=== PATIENT | female | born 1960 | race Caucasian/White ===

== ENCOUNTER → 2020-08-11 | Outpatient (CLI) | payer BC ==
--- NOTE | 2020-08-11 11:22 | CT ---
EXAMINATION TYPE: CT urogram wo/w con DATE OF EXAM: 08/11/2020 HISTORY: Microscopic hematuria CT DLP: 1622.5mGycm Automated Exposure Control for Dose Reduction was Utilized. CONTRAST: CT scan of the abdomen and pelvis is performed without oral and without and with IV Contrast, patient injected with 100 mL of Isovue 300. Urogram protocol with 3-D reconstructed images created on an ind [employer] HR workstation and reviewed COMPARISON: None. FINDINGS: KUB: Noncontrast images show no renal calculi bilaterally. Postcontrast images show symmetric cortica l medullary uptake and excretion without concerning solid or cystic renal mass or hydronephrosis seen bilaterally. No intraluminal calculus in the bladder. Ureters nearly completely opacified without ang[place] spicious mass or calculus. Distal right ureter never is well opacified. No suspicious intraluminal ma ss or wall thickening in the bladder. LUNG BASES: No significant abnormality is appreciated. LIVER/GB: Cholecystectomy clips are present. PANCREAS: No significant abnormality is seen. SPLEEN: No significant abnormality is seen. ADRENALS: No significant abnormality is seen. BOWEL: No significant abnormality is seen. UTERUS/ADNEXA: Anteverted uterus. LYMPH NODES: No greater than 1cm abdominal or pelvic lymph nodes are appreciated. OSSEOUS STRUCTURES: Mild to moderate axial joint space loss with mild acetabular spurring in both hip s. Mild facet arthropathy lower lumbar levels. OTHER: No significant additional abnormality is seen. IMPRESSION: Source of microhematuria not identified. Fairly unremarkable study.
== END | disposition home or self-care (01) ==
LOC: RADCTMAIN 08:22
PROVIDERS: ATTEND Urology
DX: R31.1 Benign essential microscopic hematuria (principal); Z88.1 Allergy status to other antibiotic agents; Z88.8 Allergy status to other drugs, medicaments and biological substances
CPT/HCPCS: 74178; 74400; Q9967

== ENCOUNTER → 2021-10-19 | Outpatient (CLI) | payer BC ==
--- NOTE | 2021-10-19 16:35 | US ---
EXAMINATION TYPE: US kidneys/renal and bladder DATE OF EXAM: 10/19/2021 COMPARISON: None CLINICAL HISTORY: 60-year-old female R31.0 gross hematuria. Macroscopic hematuria x 1 month ago. Hx recurrent UTI's. TECHNIQUE: Multiple sonographic images of the kidneys and bladder are obtained. FINDINGS: EXAM MEASUREMENTS: Right Kidney: 8.8 x 4.1 x 4.7 cm Left Kidney: 9.4 x 3.6 x 4.0 cm Right Kidney: No hydronephrosis or masses seen Left Kidney: Possible microcalcifications measuring up to 3 mm. There is no hydronephrosis seen. Bladder: Distended, anechoic Bilateral Jets seen . IMPRESSION: 1. Possible small nonobstructive calculi in the left kidney (versus prominent vascular reflectors) me asuring up to 3 mm. 2. No hydronephrosis on either side.
== END | disposition home or self-care (01) ==
LOC: RADUSWWP 14:38
PROVIDERS: ATTEND Urology
DX: R31.0 Gross hematuria (principal)
CPT/HCPCS: 76770